=== PATIENT | female | born 1965 | race Two or more races ===

== ENCOUNTER 2019-05-29 14:26 | Emergency (ER) | payer BC ==
[~2019-05-29] VITALS: Ht 154.9 cm; Wt 63.5 kg
[2019-05-29] MEDS ORDERED: GLIPIZIDE5 MG ORAL (14:35)
[2019-05-29] MEDS ORDERED: METFORMIN HCL500 M1 ORAL (14:35)
[2019-05-29 14:43] VITALS: BP 132/76
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
[2019-05-29] MEDS ORDERED: HYDROcodone/Acetamin 5/325 tab PO ONE (15:00)
[2019-05-29] MEDS ORDERED: Isovue-300 100ml vial INJ PRN (15:00)
[2019-05-29] MEDS ORDERED: Tetanus/Diptheria/Pertussis IM ONE (15:00)
[2019-05-29] MEDS ORDERED: Ketorolac 30mg Inj IV ONE (15:00)
[2019-05-29] MEDS ORDERED: Neosporin Oint Ud Pkt TOP ONE (15:00)
[2019-05-29] MEDS ORDERED: Morphine Sulfate 2mg/ml Inj(IV/IM USE ONLY) IVP ONE (15:00)
[2019-05-29 15:54] LABS: APPEARANCE,URINE CLEAR; BILIRUBIN, URINE NEGATIVE (NEGATIVE); GLUCOSE, URINE (UA) 4+ (NEGATIVE); KETONES,URINE NEGATIVE (NEGATIVE); LEUKOCYTE ESTERASE ,URINE NEGATIVE (NEGATIVE); NITRITE,URINE NEGATIVE (NEGATIVE); PH,URINE 5 (4.5-8.0); PROTEIN,URINE NEGATIVE (NEGATIVE); UROBILINOGEN,URINE NORMAL MG/DL (0.0-1.0)
[2019-05-29 15:57] LABS: ANION GAP 13 mmol/L (5-15); BLOOD UREA NITROGEN 13 mg/dL (7-18); CALCIUM 9.3 MG/DL (8.5-10.1); CARBON DIOXIDE 24 MMOL/L (21-32); CHLORIDE 104 MMOL/L (98-107); COLOR,URINE YELLOW; CREATININE 0.6 MG/DL (0.55-1.30); POTASSIUM 3.9 MMOL/L (3.5-5.1); SODIUM 141 MMOL/L (136-145)
[2019-05-29 16:03] LABS: ALANINE AMINOTRANSFERASE 46 U/L (12-78); ALBUMIN 4.1 G/DL (3.4-5.0); ALKALINE PHOSPHATASE 157 U/L (46-116); ASPARTATE AMINO TRANSFERASE 18 U/L (15-37); BASOPHILS % (AUTO) 0.7 % (0.0-2.0); EOSINOPHILS % (AUTO) 1.2 % (0.0-3.0); HEMATOCRIT 36.6 % (37.0-47.0); HEMOGLOBIN 13.4 G/DL (12.0-16.0); LYMPHOCYTES % (AUTO) 18.9 % (20.0-45.0); MEAN CORPUSCULAR VOLUME 80 FL (80-99); MONOCYTES % (AUTO) 4.8 % (1.0-10.0); NEUTROPHILS % (AUTO) 74.5 % (45.0-75.0); PLATELET COUNT 280 K/UL (150-450); RED BLOOD COUNT 4.56 M/UL (4.20-5.40); RED CELL DISTRIBUTION WIDTH 11.1 % (11.6-14.8); WHITE BLOOD COUNT 14.6 K/UL (4.8-10.8)
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
[2019-05-29] MEDS ORDERED: NORCO 5-325 TA1 EACH ORAL (18:07)
[2019-05-29] MEDS ORDERED: IBUPROFEN600 MG ORAL (18:07)
--- NOTE | 2019-05-29 18:15 | NUR ---
ER DISCHARGE NOTE: Patient is cleared to be discharged per ERMD, pt is aox4, on room air, with stable vital signs. pt was given dc and prescription instructions, pt was able to verbalize understanding, pt id band and iv site removed without complications. pt is able to ambulate with steady gait. pt took all belongings.
[2019-05-29 18:18] VITALS: BP 130/73
[2019-05-29 18:19] VITALS: BP 130/73
== END 2019-05-29 18:21 | disposition home or self-care (01) ==
LOC: EMR 15:00
DX: S22.31XA Fracture of one rib, right side, initial encounter for closed fracture (principal); S30.1XXA Contusion of abdominal wall, initial encounter; S16.1XXA Strain of muscle, fascia and tendon at neck level, initial encounter; E11.65 Type 2 diabetes mellitus with hyperglycemia; D72.828 Other elevated white blood cell count; K42.9 Umbilical hernia without obstruction or gangrene; Z23 Encounter for immunization; V43.92XA Unspecified car occupant injured in collision with other type car in traffic accident, initial encounter; Y92.410 Unspecified street and highway as the place of occurrence of the external cause
CPT/HCPCS: 36415; 74177; 80053; 81001; 82962; 85025; 90471; 90715; 96374; 96375; 99284; J1885; J2270; J2405; Q9967